=== PATIENT | female | born 1975 | race Caucasian/White ===

== ENCOUNTER 2019-11-30 09:04 | Outpatient (CLI) | payer OTHER ==
--- NOTE | 2019-11-30 12:03 | MMO ---
Left Breast MAMMO Unilat Diag [facility]DI LT+ROBIN. CLINICAL HISTORY: Patient is 44 years old and is seen for additional evaluation requested from prior study. The patient has the following family history of breast cancer: mother, at age 65, malignant (generic). The patient has no personal history of cancer. VIEWS: The views performed were: left craniocaudal spot compression with tomosynthesis; left mediolateral oblique spot compression with tomosynthesis; and left mediolateral with tomosynthesis. FILMS COMPARED: The present examination has been compared to prior imaging studies performed at [facility] on 11/20/2019, and at [facility] on 11/30/2019. This study has been interpreted with the assistance of computer-aided detection. MAMMOGRAM FINDINGS: There are scattered fibroglandular densities. The asymmetry seen posterior lower left breast on outside exam does not persist on diagnostic study. There are no suspicious masses, suspicious calcifications, or new areas of architectural distortion. IMPRESSION: THERE IS NO MAMMOGRAPHIC EVIDENCE OF MALIGNANCY. A ROUTINE FOLLOW-UP MAMMOGRAM IN 1 YEAR IS RECOMMENDED. THE RESULTS OF THIS EXAM WERE SENT TO THE PATIENT. ACR BI-RADS Category 2 - Benign finding MAMMOGRAPHY NOTE: 1. A negative mammogram report should not delay a biopsy if a dominant of clinically suspicious mass is present. 2. Approximately 10% to 15% of breast cancers are not detected by mammography. 3. Adenosis and dense breasts may obscure an underlying neoplasm. Reported by: OMER JOAQUIN MD Electonically Signed: [id number]
--- NOTE | 2019-11-30 12:04 | ULT ---
ULTRASOUND LEFT BREAST: Indications: Ultrasound of the lower left breast performed to assess the asymmetry seen on mammograph y. FINDINGS: The lower left breast was evaluated from the 6 and 7 o'clock regions. No sonographic abnormality iden tified at the location of the mammographic density. IMPRESSION: Ultrasound findings, BIRADS 1 - negative. POS: [facility]
== END 2019-11-30 09:05 | disposition home or self-care (01) ==
LOC: BICMAMMO 09:04
PROVIDERS: ATTEND Obstetrics & Gynecology
DX: N63.20 Unspecified lump in the left breast, unspecified quadrant (principal); Z80.3 Family history of malignant neoplasm of breast
CPT/HCPCS: G0279